=== PATIENT | male | born 2000 | race Two or more races ===

== ENCOUNTER 2020-12-24 02:44 | Emergency (ER) | payer OTHER ==
--- NOTE | 2020-12-24 03:06 | EDM.PDOC ---
ED [facility] GENERAL MEDICAL PROBLEM - General Chief Complaint: Laceration Stated Complaint: CUT ON LEFT HAND Time Seen by Provider: 12/24/20 02:52 - History of Present Illness INITIAL COMMENTS - FREE TEXT/NARRATIVE: History of present illness: [] The patient caught his nondominant left hand in a piece of machinery just before arrival and had a slice on the fat pad proximal to the fifth digit on the volar surface of the left hand. He is a [id number]. The patient did not have a crush injury or fall. The there is no pain like he had have the fracture but just a painful slice across the skin. Neurovascular structures i ntact distally. Patient had a tetanus toxoid less than 5 years. Review of systems: As per history of present illness and below otherwise all systems reviewed and negative. Past medical history: As per history of present illness and as reviewed below otherwise noncontributory. Surgical history: As per history of present illness and as reviewed below otherwise noncontributory. Social history: No reported history of drug or alcohol abuse. Family history: As per history of present illness and as reviewed below otherwise noncontributory. Physical exam: Constitutional - well developed, well-nourished and in no acute distress HEENT - normocephalic, no evidence of trauma - external nose and mouth normal - no mass in neck and no JVD - mucosae moist EYES - full EOM, PERRL, no icterus - no evidence of inflammation, injection, or drainage Respiratory - no respiratory distress, equal bilateral expansion Musculoskeletal no gross deformity of long bones or joints - no tenderness, swelling or edema Neurologic - Alert and oriented times four - CN II-XII grossly intact - motor sensory and coordination symmetrically normal Psychiatric - appropriate mood and affect with normal thought content Hematologic - No petechiae or purpura - mucosa appropriate color and sclera not pale - normal nail bed color and refill Integument - no rash or evidence of trauma - normal turgor Diagnostics: [] Therapeutics: [] Impression: [] Plan: [] Definitive disposition and diagnosis as appropriate pending reevaluation and review of above. Left Hand Pain Score (Numeric/FACES): 2 ED ROS GENERAL - Review of Systems Review Of Systems: Comprehensive ROS is negative, except as noted in HPI. ED EXAM, SKIN/RASH Exam: See Below Text/Narrative:: My physical exam is in the [facility] ED SKIN PROCEDURES - Laceration/Wound Repair Left Hand Appearance: Subcutaneous Anesthetic Type: Local Local Anesthesia - Lidocaine (Xylocaine): 1% Plain Local Anesthetic Volume: 4cc Saline Irrigation (cc's): 1,000 Exploration/Debridement/Repair: Wound Explored, In a Bloodless Field Closed with: Sutures Lac/Wound length In cm: 1 Suture Size: 4-0 # of Sutures: 3 Suture Size: 4-0 # of Sutures: 3 Course - Vital Signs Last Recorded V/S: Last Vital Signs Temp 36.8 C 12/24/20 03:02 Pulse 68 12/24/20 03:02 Resp 16 12/24/20 03:02 BP 126/61 12/24/20 03:02 Pulse Ox 97 12/24/20 03:02 - Orders/Labs/Meds Meds: Medications Discontinued Medications Generic Name Dose Route Start Last Admin Trade Name Freq PRN Reason Stop Dose Admin Lidocaine HCl 5 ml 12/24/20 03:13 Lidocaine 1% 5 Ml Sdv INJECT 12/24/20 03:14 ONETIME ONE Lidocaine HCl Confirm 12/24/20 03:14 Lidocaine 1% 5 Ml Sdv Administered 12/24/20 03:15 Dose 5 ml .ROUTE .STK-MED ONE Departure - Departure Time of Disposition: 03:32 Disposition: Home, Self-Care 01 Condition: Good Clinical Impression: Laceration of left hand - Discharge Information Instructions: Laceration Care, Adult, [id number] Referrals: PCP,None [Primary Care Provider] - Forms: ED Department Discharge Additional Instructions: Sutures out in 7 to 10 days. You can do that here. Vamos a sacar los puntos en 7-10 rajput. Se puede regresar aqui para bhupinder o jatinder a [facility] - Primary Care [address] [place] [id number] [address] [address] The following information is given to patients seen in the emergency department who are being discharged to home. This information is to outline your options for follow-up care. We provide all patients seen in our emergency department with a follow-up referral. The need for follow-up, as well as the timing and circumstances, are variable depending upon the specifics of your emergency department visit. If you don't have a primary care physician on staff, we will provide you with a referral. We always advise you to contact your personal physician following an emergency department visit to inform them of the circumstance of the visit and for follow-up with them and/or the need for any referrals to a consulting specialist. The emergency department will also refer you to a specialist when appropriate. This referral assures that you have the opportunity for follow-up care with a specialist. All of these measure are taken in an effort to provide you with optimal care, which includes your follow-up. Under all circumstances we always encourage you to contact your private physician who remains a resource for coordinating your care. When calling for follow-up care, please make the office aware that this follow-up is from your recent emergency room visit. If for any reason you are refused follow-up, please contact the [facility] Emergency Department at and asked to speak to the emergency department charge nurse. Sepsis Event Note (ED) - Focused Exam Vital Signs: Vital Signs Temp Pulse Resp BP Pulse Ox 12/24/20 03:02 36.8 C 68 16 126/61 97
== END 2020-12-24 03:45 | disposition home or self-care (01) ==
LOC: MW.ED 02:44
DX: S61.412A Laceration without foreign body of left hand, initial encounter (principal); W23.0XXA Caught, crushed, jammed, or pinched between moving objects, initial encounter
CPT/HCPCS: 12001; 99282-25; 99283

== ENCOUNTER 2020-12-30 09:10 | Emergency (ER) | payer OTHER | END 2020-12-30 09:26 | disposition left against medical advice (07) | LOC: MW.ED 09:10 | DX: Z48.02 Encounter for removal of sutures (principal) | CPT/HCPCS: 99281 ==